=== PATIENT | female | born 1995 | race Caucasian/White ===

== ENCOUNTER → 2024-04-02 15:27 | Outpatient (REF) | payer OTHER, SELFPAY | LOC: RAD 15:27 | PROVIDERS: ATTENDING PHYSICIAN Family Medicine | DX: E05.90 Thyrotoxicosis, unspecified without thyrotoxic crisis or storm (principal) | CPT/HCPCS: 76536 ==

== ENCOUNTER 2025-03-21 17:20 | Emergency (ER) | payer OTHER, SELFPAY ==
[2025-03-21 17:25] VITALS: BP 145/97
[2025-03-21 17:41] LABS: Hematocrit 39.4 % (37.0-47.0); Hemoglobin 13.9 g/dL (12.0-16.0); Mean Corp Hgb Conc. 35.3 g/dL (33.0-37.0); Mean Corpuscular Volume 93.1 fL (81.0-99.0); Nucleated Red Blood Cells % 0 %; Platelet Count 315 10^3/uL (130-400); Red Cell Dist. Width 11.3 % (11.5-14.5)
[2025-03-21 18:03] LABS: ALT (SGPT) 20 U/L (0-35); AST (SGOT) 25 U/L (14-36); Albumin 5.3 g/dl (3.5-5.0); Alkaline Phosphatase 54 U/L (38-126); Blood Urea Nitrogen 12 mg/dl (7-17); Calcium 10.0 mg/dl (8.4-10.2); Carbon Dioxide 23 mmol/L (22-30); Chloride 105 mmol/L (98-107); Glucose 98 mg/dl (70-99); Potassium 4.0 mmol/L (3.5-5.1); Sodium 139 mmol/L (135-145); Total Protein 8.6 g/dl (6.3-8.2); eGFR > 60.00
[2025-03-21 18:19] LABS: Beta HCG Quantitative 3483.70 mIU/ml
[2025-03-21 20:00] VITALS: BP 129/74
[2025-03-21 21:13] LABS: Urine Character Clear (Clear)
[2025-03-21 21:31] LABS: Urine Squamous Cell 0-2 /LPF (Few)
[2025-03-21 21:32] LABS: Urine Red Blood Cell 0-2 /HPF (0-2); Urine White Cell 0-2 /HPF (0-5)
--- NOTE | 2025-03-21 22:37 | ED.GENMED ---
History of Present Illness
General
Chief Complaint: Problems
Source: patient and spouse
Time Seen by Provider: 03/21/25 20:15
History of Present Illness
History of Present Illness:
Note:
CHIEF COMPLAINT(S)
Vaginal bleeding during early .
HISTORY OF PRESENT ILLNESS
The patient is a 29-year-old female presenting with vaginal bleeding. She reports spotting that began the previous morning, described as light spotting initially, which later became similar to a menstrual period after a visit to her stopper setter
today. The stopper setter reassured her but advised contacting them if cramping or more significant bleeding occurred. The patient experienced mild cramping during weeks four, five, and six of but notes no cramping associated with the
current bleeding incident. She reports no significant obstetric history and this is her first . The patient is understandably anxious, expressing concerns about the implications of this bleeding for her .
PAST MEDICAL AND SURIGICAL HISTORY
The patient has a history of Graves disease, for which she was treated with Methimazole, currently in remission and managed with Levothyroxine due to a subsequent phase of hypothyroidism.
ALLERGIES
The patient reports an allergy to Doxycycline.
MEDICATIONS
Currently taking Levothyroxine. Additionally, the patient is taking vitamins.
REVIEW OF SYSTEMS
- Genitourinary: Vaginal bleeding, no urinary pain or fever reported.
PHYSICAL EXAM
General: Alert, no acute distress.
Skin: Warm, dry.
Head: Normocephalic, atraumatic.
Neck: Supple, trachea midline.
Eye Ears, nose, mouth, and throat: Oral mucosa moist.
Cardiovascular: Normal peripheral perfusion, no edema.
Respiratory: Respirations are non-labored.
Gastrointestinal: Abdomen nondistended.
Back: Normal range of motion, normal alignment.
Musculoskeletal: Normal ROM, normal strength.
Neurological: Alert and oriented to person, place, time, and situation, no focal neurological deficit observed.
Psychiatric: Cooperative, appropriate mood & affect.
PROBLEM LIST
Acute:
- Vaginal bleeding during early .
- Elevated ?-hCG levels without corresponding intrauterine on ultrasound.
- Concern for ectopic versus miscarriage.
CHRONIC
- Graves disease in remission.
PLAN
1. Obtain a blood test to determine the patients blood type, crucial for identifying potential rhesus incompatibility.
2. Coordination with obstetrics for a repeat ?-hCG in 24 hours to assess for decreasing hormone levels, which may indicate a resolving non-viable intrauterine or ectopic .
3. Discussed the potential for ectopic due to high ?-hCG levels and the lack of intrauterine , with consideration for Methotrexate treatment if needed.
4. Arranged for bleeding watch with repeat ?-hCG to monitor hormone progression or decrease.
5. Prepare for possible OB consultation to treat or exclude ectopic progression.
6. Counseling provided to the patient and partner, including reassurance about the commonality of miscarriages and the plan of action moving forward.
DIFFERENTIAL DIAGNOSIS
The Differential Diagnosis includes, in no particular order and is not limited to:
1. Early bleeding.
2. Ectopic .
3. Miscarriage.
4. Molar .
5. Subchorionic hemorrhage.
6. Cervical infections or lesions.
7. Implantation bleeding.
8. Hormonal fluctuations or imbalances.
9. Uterine fibroids during .
10. Placental issues such as abruption.
CARE-UPDATE
03/21/25 - 22:30
The patients blood type is confirmed as A positive. She does not require any future medication related to Rh incompatibility if . The current plan includes following up with lab work tomorrow to trend beta HCG levels and awaiting ultrasound
results. The physician suspects a failed rather than an ectopic one, with a lower suspicion of ectopic based on current beta trends. The expectation is potentially observing symptoms similar to those of menstruation, including cramping and
mild bleeding, but not severe pain or excessive bleeding. The patient is advised to return if there is significant pain or heavy bleeding. Patient reports mild gastrointestinal discomfort, which is not concerning for pelvic pathology. Instructions
to monitor symptoms and follow up if unclear on how to manage at home are provided.
Disposition:
SUMMARY OF ENCOUNTER
The patient, a 29-year-old with her first , presented with vaginal bleeding and concerns about early complications. A beta-human chorionic gonadotropin (?-hCG) level of 3,400 was noted, down from a previous level of 3,700 the
previous Tuesday. An ultrasound indicated no yolk sac or pole. The suspicion was raised for a failed over an ectopic , as there is a decreasing ?-hCG trend, and the patient has no significant findings of an ectopic .
The patient was evaluated as stable without pain and was well-appearing upon discharge.
DISPOSITION
Discharge.
ASSESSMENT
Suspected failed with declining ?-hCG levels and ultrasound findings indicating no pole or yolk sac.
MANAGEMENT OF THE PATIENTS CARE WAS DISCUSSED WITH
The case was discussed with obstetrics, who concurred with the suspicion of a failed and planned to follow up with the patient.
PLAN
Coordinate follow-up for repeat beta-hCG testing tomorrow to monitor hormone levels. Obstetrics will manage the patient further with a scheduled follow-up next week.
INDEPENDENT REVIEW OF LABS AND INTERPRETATION OF TESTS
My independent review of urinalysis shows no signs of infection.
My independent review of CMP is grossly normal.
My independent review of CBC is normal with normal hemoglobin and white cell count.
My independent interpretation of the ultrasound shows no evidence of pole or yolk sac.
PATIENT EDUCATION AND COUNSELING
The patient was informed about the possible failed , and reassurance was provided about the plan for monitoring and follow-up with obstetrics.
FOLLOW-UP INSTRUCTIONS
The patient is to follow up with labs tomorrow for repeat ?-hCG testing and an obstetrics follow-up scheduled for next week.
MEDICATION RECONCILIATION
The patient is currently taking Levothyroxine and vitamins; no new prescriptions were given.
MEDICAL DECISION MAKING
- Complexity of Data Reviewed: Chronic conditions affecting care include Graves disease in remission.
Differential Diagnosis includes early bleeding, ectopic , and miscarriage.
- Data:
Category 1
My independent review of CMP and CBC with normal findings.
My independent interpretation of ultrasound showing no pole or yolk sac.
Category 3
Discussion of management with obstetrics regarding suspicion of failed .
-Risk:
Consideration of Admission/Observation: Escalation of care, including admission/observation, was considered given the complexity and risk of the patients presenting complaint, exam findings, and underlying conditions. However, ultimately, I feel the
patient is safe for outpatient management with close follow-up. Reasoning: Work-up is reassuring, does not reveal any acute life/organ-threatening processes, patients symptoms are well-controlled upon reevaluation, reexamination is reassuring,
vitals are stable, patient agrees with discharge and is reliable for follow-up.
DIAGNOSIS
Failed , unspecified, suspected - ICD-10: O02.1
Observation for suspected ectopic - ICD-10: O36.80
Graves disease in remission - ICD-10: E05.00
Phy Exam
Physical Exam
Physical Exam:
.
Course
Orders/Labs/Results
Orders:
Orders
03/21/25 17:29
US W Transvaginal Urgent
Reason For Exam: 7 weeks preg cramping/bleeding
03/21/25 17:34
Beta HCG Quantitative Urgent
Is this a screen?: No
Comment: need hcg number
Complete Blood Count/With Diff Urgent
Comprehensive Metabolic Panel Urgent
03/21/25 21:05
Blood Group&Type Urgent
Urinalysis Reflex To Culture Urgent
Date Specimen was Collected: 03/21/25
Time Specimen was Collected: 21:00
Urine Microscopic Reflex Cult Urgent
03/21/25 21:34
ABO2 Urgent
BBK Wristband Number:
Associate notified that ABO2 has been ordered: [id number]
Date: 03/21/25
Time: 21:14
Recreational Programs Director ID: [id number]
Abnormal Lab Results
03/21/25 03/21/25
17:34 21:05
MCH 32.9 H pg
(27.0-31.0)
RDW 11.3 L %
(11.5-14.5)
Total Protein 8.6 H g/dl
(6.3-8.2)
Albumin 5.3 H g/dl
(3.5-5.0)
Ur Occult Blood Reflex 2+ A
(Negative)
Urine Bacteria (Reflex) Few A
(Negative)
03/21/25 17:34
03/21/25 17:34
Vital Signs
Initial and Last Documented VS:
Initial Vital Signs
Temp Pulse Resp BP Pulse Ox
98.5 F 110 16 145/97 98
03/21/25 17:25 03/21/25 17:25 03/21/25 17:25 03/21/25 17:25 03/21/25 17:25
Last Documented Vital Signs
Temp Pulse Resp BP Pulse Ox
98.5 F 84 20 122/73 99
03/21/25 17:25 03/21/25 22:51 03/21/25 22:51 03/21/25 22:51 03/21/25 22:51
Information
Weeks gestation: Weeks: (7)
Location: N/A
*Pulse Oximetry
SaO2: 99
Oxygen Mode of Delivery: Room air
Patient hypoxic: no
*Critical Care Note
Total Time (30-74mins, 75-104mins- exclusive of procedures): Not Applicable
ED Attending Note
-
Portions of this chart may have been created with voice recognition software.� Occasional wrong word or��sound alike� substitutions may have occurred due to the inherent limitations of voice recognition software.
Discharge Plan
Departure
Patient Disposition: Home (Routine Discharge)
Date of Disposition: 03/21/25
Time of Disposition: 22:37
Patient with high blood pressure during this ER visit?: No
Discharge Problem:
Vaginal bleeding in , suspected miscarriage
Instructions: Threatened Miscarriage (DC)
Referrals:
Yas Koo DO [Family Provider, Family Practice]
Activity Restrictions/Additional Instructions:
Please be sure to have your labs drawn tomorrow as planned and follow-up with your ultrasound as planned next week. Please see and connect with your stopper setter over the next 48 hours for further advice. Return immediately for heavy bleeding,
pelvic or abdominal pain, fevers or any other concerns.
Interventions
Interventions:
*Risk Screen - Suicide Last Done: 03/21/25 17:25
*General Assessment Last Done: 03/21/25 17:25
*Neglect/Abuse Screening Last Done: 03/21/25 21:00
*ED- Fall Risk Assessment Last Done: 03/21/25 17:25
*ED COVID-19 Vaccine History Last Done: 03/21/25 17:25
*Nursing Disposition Last Done: 03/21/25 22:51
ED-Female Genitourinary Assessment Last Done: 03/21/25 21:00
Discharge Date and Time
Discharge Date/Time: 03/21/25 22:52
Print Language: SLOVENIAN
[2025-03-21 22:51] VITALS: BP 122/73
== END 2025-03-21 22:52 | disposition home or self-care (01) ==
LOC: EMR 17:20
PROVIDERS: Emergency Medicine; EMERGENCY PHYSICIAN Emergency Medicine; FAMILY PHYSICIAN Family Medicine
DX: O20.9 Hemorrhage in early pregnancy, unspecified (principal); Z3A.01 Less than 8 weeks gestation of pregnancy; O99.281 Endocrine, nutritional and metabolic diseases complicating pregnancy, first trimester; E05.00 Thyrotoxicosis with diffuse goiter without thyrotoxic crisis or storm; E03.9 Hypothyroidism, unspecified; Z88.1 Allergy status to other antibiotic agents
CPT/HCPCS: 99284; 76801; 76817; 80053; 81003; 81015; 84702; 85025; 86900; 86901